=== PATIENT | male | born 1970 | race Two or more races ===

== ENCOUNTER 2025-03-08 10:58 | Inpatient (IN) | payer MEDICAID, OTHER ==
[~2025-03-08] VITALS: Ht 188 cm; Wt 171.0 kg
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
[2025-03-08 13:21] LABS: Hematocrit 42.8 % (41.0-53.0); Hemoglobin 14.9 g/dL (13.5-17.5); Mean Corpuscular Hemoglobin 29.5 pg (28.0-32.0); Mean Corpuscular Volume 85.0 fL (80.0-100.0); Nucleated Red Blood Cells % 0.1 %
[2025-03-08 13:25] LABS: Alanine Aminotransferase 28 U/L (7-40); Albumin 4.5 g/dL (3.2-4.8); Alkaline Phosphatase 114 U/L (46-116); Anion Gap 10 (5-15); BUN/Creatinine Ratio 18.4 (10.0-20.0); Blood Urea Nitrogen 14 mg/dL (9-23); Calcium 9.4 mg/dL (8.7-10.4); Carbon Dioxide 25 mmol/L (20-31); Chloride 102 mmol/L (98-107); Glucose 93 mg/dL (74-106); Potassium 4.0 mmol/L (3.5-5.1); Sodium 137 mmol/L (136-145); Total Protein 7.9 g/dL (5.7-8.2)
[2025-03-08 13:26] LABS: Bilirubin, Total 0.8 mg/dL (0.2-1.0); Creatine Kinase IFCC 67 U/L (46-171)
[2025-03-08 13:27] LABS: INR 1.0 (0.9-1.15); Prothrombin Time 10.6 sec (9.3-11.8)
[2025-03-08] MEDS: ACETAMINOPHEN 325 MG TAB PO ONE ×2 (13:33→23:12)
[2025-03-08] MEDS: SODIUM CHLORIDE 0.9% 1,000 ML IV ONE (13:34)
[2025-03-08] MEDS: CLINDAMYCIN 600MG IV 50 ML IV ONE ×2 (13:39→23:12)
--- NOTE | 2025-03-08 14:14 | DVH ---
Clinical History: swollen. pain Comparison: None Technique: Duplex Doppler evaluation of the deep venous system of the left lower extremity from the common femor al vein to the popliteal vein including color Doppler and spectral/pulsed waveform analysis was perfo rmed. Findings: The common femoral vein demonstrates appropriate compressibility and waveform variability. There is compressibility/patency of the great saphenous vein at the proximal thigh. The femoral vein demonstrates appropriate compressibility and waveform variability. The deep femoral vein demonstrates appropriate compressibility and waveform variability. The popliteal vein demonstrates appropriate compressibility and waveform variability. There is normal compressibility at the tibioperoneal trunk. Suboptimal visualization of the left post erior tibial vein due to body habitus. Impression: No left deep venous thrombosis. If clinical concern/symptoms persist or worsen, short-interval follow-up study is suggested.
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
[2025-03-08] MEDS ORDERED: MORPHINE SULFATE INJ 2 MG/ml SYRG IV PRN (21:45)
[2025-03-08] MEDS ORDERED: ONDANSETRON HCL 4 MG/2 ML VIAL IV PRN (21:45)
[2025-03-08] MEDS: ALBUTEROL SULF 2.5 MG/0.5ML(0.5%) NEB SOLN ONE (23:13)
[2025-03-08] MEDS: IPRATROPIUM BROM 0.5 MG/2.5ML INH SOL ONE (23:13)
--- NOTE | 2025-03-08 23:29 | DVH ---
CHEST RADIOGRAPH Indication: routine Technique: Single frontal view of the chest was obtained COMPARISON: None FINDINGS: Lines and Tubes: None Lungs: Clear Pleura: No effusion. No pneumothorax. Cardiomediastinal contours: Unremarkable Bones: Unremarkable IMPRESSION: 1. No acute disease.
[2025-03-08 23:52] VITALS: O2SAT 100
[2025-03-09] VITALS (7 sets, daily range): BP systolic 117–162; BP diastolic 67–91; PULSE 49–62; RESP 17–99; TEMP 97.4–98.7; O2SAT 18–99
[2025-03-09] MEDS ORDERED: LISI-283 PO (01:14)
[2025-03-09] MEDS ORDERED: VANCOMYCIN PER PHARMACY 0 MG IV SCH (05:00)
[2025-03-09] MEDS: VANCOMYCIN 1GM/250ML KIT 250 ML IV SCH (05:20)
[2025-03-09] MEDS ORDERED: CLINDAMYCIN 900MG IV 50 ML IV SCH (06:00)
[2025-03-09 06:07] LABS: Hematocrit 38.9 % (41.0-53.0); Hemoglobin 13.4 g/dL (13.5-17.5); Mean Corpuscular Hemoglobin 29.3 pg (28.0-32.0); Mean Corpuscular Volume 85.3 fL (80.0-100.0); Nucleated Red Blood Cells % 0.0 %
[2025-03-09 06:22] LABS: Alanine Aminotransferase 24 U/L (7-40); Alkaline Phosphatase 103 U/L (46-116); Anion Gap 10 (5-15); BUN/Creatinine Ratio 15.4 (10.0-20.0); Blood Urea Nitrogen 12 mg/dL (9-23); Calcium 8.8 mg/dL (8.7-10.4); Carbon Dioxide 25 mmol/L (20-31); Chloride 103 mmol/L (98-107); Potassium 4.3 mmol/L (3.5-5.1); Sodium 138 mmol/L (136-145); Total Protein 6.9 g/dL (5.7-8.2)
[2025-03-09 06:23] LABS: Albumin 3.9 g/dL (3.2-4.8)
[2025-03-09 06:24] LABS: Bilirubin, Total 0.7 mg/dL (0.2-1.0); Glucose 113 mg/dL (74-106)
[2025-03-09] MEDS: CEFEPIME 2GM/50ML NS 50 ML IV SCH (06:31)
[2025-03-09] MEDS: LISINOPRIL 20 MG TAB PO SCH (08:54)
[2025-03-09] MEDS: hydroCHLOROthiazide 25 MG TAB PO SCH (08:54)
[2025-03-09] MEDS ORDERED: PATIENTS OWN MEDICATION (Lisinopril & Hydrochlorothiazi (Lisinopril/Hydrochlorothi) 1 TAB) PO SCH (10:00)
--- NOTE | 2025-03-09 14:04 | DVH ---
CLINICAL INDICATION: pain TECHNIQUE: 4 radiographic views of the left tibia/fibula were obtained. Comparison: None FINDINGS/IMPRESSION: There is no evidence of acute fracture or dislocation. The visualized joint space is well maintained. Postsurgical changes are visualized in the distal tibi a and distal fibula. The alignment is anatomical. There is no radiopaque foreign body.
[2025-03-09] MEDS ORDERED: LIDOCAINE 1% INJ PF 5ML AMP ONE (14:28)
[2025-03-09] MEDS ORDERED: PROPOFOL 10 MG/ML 20 ML IV ONE (14:28)
[2025-03-09] MEDS ORDERED: ONDANSETRON HCL 4 MG/2 ML VIAL ONE (14:28)
[2025-03-09] MEDS ORDERED: SODIUM CHLORIDE LOCK 10 ML ONE (14:28)
[2025-03-09] MEDS ORDERED: MIDAZOLAM HCL 2MG/2ML 2ml VIAL (1mg/ml) ONE (14:28)
[2025-03-09] MEDS ORDERED: fentaNYL CITRATE 100 MCG/2 ML VL ONE (14:28)
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
[2025-03-09] MEDS: HYDROmorphone HCL 2 MG/ML VL/or syr IV PRN (15:27)
[2025-03-09] MEDS: HYDROmorphone HCL 2 MG/ML VL/or syr ONE (15:29)
[2025-03-09] MEDS ORDERED: HYDROmorphone HCL 2 MG/ML VL/or syr IV PRN (15:30)
[2025-03-09] MEDS ORDERED: HYDROcodone-ACET 5/325MG TAB PO PRN (15:30)
[2025-03-09] MEDS ORDERED: METOCLOPRAMIDE HCL 5MG/ml INJ 2ml VIAL IV PRN (15:30)
[2025-03-09] MEDS: KETOROLAC TROMETH 30 MG/ML 1ML VIAL IV ONE (15:30)
[2025-03-09] MEDS ORDERED: MORPHINE SULFATE 4 MG/ML SYR/VIAL IV PRN (15:30)
[2025-03-09] MEDS: ACCU-CHEK COMFORT CURVE STRIP VI ONE (15:30)
[2025-03-09] MEDS ORDERED: MORPHINE SULFATE INJ 2 MG/ml SYRG IV PRN (15:30)
[2025-03-09] MEDS ORDERED: HYDROcodone-ACET 10/325MG TAB PO PRN (15:30)
--- NOTE | 2025-03-09 15:36 | DVHOP2 ---
Operative Report - 2 Report Details Date: 03/09/25 Preop Diagnosis: Traumatic wound, infected Postop Diagnosis: Infected traumatic wound Surgeon: Bonifacio Padgett MD Anesthesiologist: Dr. Henry Anesthesia: General Consent: The patient was informed of the risks and benefits of the procedure. These include but are not limited to complications of anesthesia, postoperative infection, incomplete relief of symptoms, recurrence of symptoms, damage to blood vessels, nerves and tendons, deep venous thrombosis, pulmonary embolism and possible need for repeat surgery in the future. Estimated Blood Loss: 2 mL Findings: Wound with central eschar, once eschar was removed wound extended all the way to the tibialis muscle, wound had an infected hematoma, pus from superior margins Indications for Surgery: Infected left lower leg wound Name of Procedure Performed Left lower leg excisional debridement Procedure Details Procedure Details: Upon arrival to the operating room patient was transferred to the operating table and placed in the supine position with arms extended. General endotracheal anesthesia was induced. Time-out was observed. Left lower extremity was prepped and draped in a standard sterile surgical fashion with Betadine-Betadine. I then directed my attention to the left roy area, where the patient had a traumatic wound with a central eschar. Affected area is approximately 5-6 cm in diameter. I then sharply dissected off the eschar. Immediately noted a infected hematoma that extended down to the tibialis muscle. Hematoma was evacuated. Upon expression of the wound I noted pus coming from the edges of the wound superiorly. Loculations were broken in this area, and cultures taken. Pus was completely evacuated. The wound had some necrotic fat that was sharply debrided. The wound was then copiously irrigated with sterile saline. No further hematoma or pus was seen. Wound did not track anywhere. Final measurement of the wound 7 x 6 cm and down to tibialis muscle. Wound edges were sharply excised to healthy bleeding tissue, to aid in healing. Hemostasis was achieved with cautery. Wound was again irrigated. No further areas of concern noticed. All counts complete and correct. Wound was packed with 4 inch Kerlix gauze, moist. Wound was dressed with 4 x 4 gauze, covered with a ABD pad, and wrapped with Kerlix gauze and Raf wrap. Patient tolerated the procedure well and was transferred to PACU in stable condition. Condition Stable Disposition Still a Patient BONIFACIO CARR MD Mar 09, 2025 15:36
[2025-03-09] MEDS: ACETAMINOPHEN 325 MG TAB PO SCH (18:12)
[2025-03-09] MEDS: VANCOMYCIN 1.75GM/350ML 350 ML IV SCH (18:13)
[2025-03-10] VITALS (7 sets, daily range): BP systolic 122–135; BP diastolic 76–86; PULSE 50–61; RESP 16–18; TEMP 97.6–98.8; O2SAT 94–99
[2025-03-10 07:15] LABS: Hematocrit 32.2 % (41.0-53.0); Hemoglobin 11.0 g/dL (13.5-17.5); Mean Corpuscular Hemoglobin 29.5 pg (28.0-32.0); Mean Corpuscular Volume 86.2 fL (80.0-100.0); Nucleated Red Blood Cells % 0.1 %
--- NOTE | 2025-03-10 10:55 | DVHPN2 ---
Subjective Patient denies any symptoms at this time. Reviewed: Care Plan, H&P, Labs Changes from previous H/P or p: No Changes General: Per HPI Eyes: No Pain, No Vision change, No Conjunctivae inflammation, No Eyelid inflammation, No Other, No Redness ENT: No Ear pain, No Ear discharge, No Nose pain, No Nose discharge, No Nose congestion, No Mouth pain, No Mouth swelling, No Throat pain, No Throat swelling, No Other Cardiovascular: No Chest Pain, No Palpitations, No Orthopnea, No Paroxysmal Noc. Dyspnea, No Edema, No Lt Headedness, No Other Respiratory: No Cough, No Dry, No Shortness of breath, No SOB with excertion, No Wheezing, No Hemoptysis, No Pleuritic Pain, No Sputum, No Other Gastrointestinal: No Nausea, No Vomiting, No Abdominal Pain, No Diarrhea, No Constipation, No Melena, No Hematochezia, No Other Genitourinary: No Dysuria, No Frequency, No Incontinence, No Hematuria, No Retention, No Other Musculoskeletal: No other, No neck pain, No shoulder pain, No arm pain, No back pain, No hand pain; leg pain; No foot pain Skin: No Rash, No Lesions, No Jaundice, No Bruising, No Other Objective Vitals Vital Signs Date Time Temp Pulse Resp B/P (MAP) Pulse Ox O2 Delivery O2 Flow Rate FiO2 03/10/25 09:11 134/76 03/10/25 07:40 Room Air* 0 21 03/10/25 05:00 97.7 50 16 94 97.7 Intake/Output Intake and Output 03/10/25 07:00 Intake Total 1725 ml Balance 1725 ml Intake Oral 700 ml IV Total 1025 ml # Voids 1 General Appearance: Alert, Oriented X3, Cooperative Cardiovascular: Normal S1, Normal S2 Musculoskeletal: Normal sensory function Skin: Dry, Intact Psych/Mental Status: Mental status NL, Mood NL Medications Current Medications Medications Dose Ordered Sig/Ana Laura Route Start Time Stop Time Status Last Admin Dose Admin Ondansetron HCl 4 mg Q4HP PRN IV 03/08/25 21:45 Morphine Sulfate 2 mg Q4HPRN PRN IV 03/08/25 21:45 Vancomycin HCl 0 ml @ 0 mls/hr UD IV 03/09/25 05:00 Metronidazole 100 ml @ 100 mls/hr Q8HR IV 03/09/25 06:00 03/10/25 05:39 100 MLS/HR Cefepime HCl 50 ml @ 12.5 mls/hr Q8HR IV 03/09/25 06:00 03/10/25 05:39 12.5 MLS/HR Patient Own Medication 1 tab DAILY PO 03/09/25 10:00 UNV Lisinopril 20 mg DAILY PO 03/09/25 10:00 03/10/25 09:11 20 MG Hydrochlorothiazide 25 mg DAILY PO 03/09/25 10:00 03/10/25 09:11 25 MG Vancomycin HCl 350 ml @ 200 mls/hr Q12H IV 03/09/25 19:00 03/10/25 06:36 200 MLS/HR Acetaminophen 650 mg Q6HR PO 03/09/25 18:00 03/10/25 05:39 650 MG Acetaminophen/ Hydrocodone Bitart 1 tab Q6HPRN PRN PO 03/09/25 15:30 Acetaminophen/ Hydrocodone Bitart 1 tab Q6HP PRN PO 03/09/25 15:30 Laboratory Results Laboratory Tests 03/09/25 05:40 03/10/25 06:02 Microbiology Microbiology Date/Time Source Procedure Growth Status 03/09/25 14:48 Leg Left Gram Stain Pending Resulted 03/09/25 14:48 Leg Left Anaerobic Culture - Preliminary Resulted 03/09/25 14:48 Leg Left Aerobic Culture Pending Resulted 03/08/25 12:45 Blood Blood Culture - Preliminary NO GROWTH AFTER 24 HOURS OF INCUBATION. Resulted Labs and/or images reviewed: Labs reviewed by me, Image(s) reviewed by me Assessment/Plan Assessment/Plan Impression: -right anterior tibialis wound/abscess -hypertension -obesity Plan: -surgical consultation -x-ray lower extremity to rule out foreign body -antihypertensives -pain management -continue current antibiotic therapy -repeat labs in a.m. Total time spent with patient discussing and formulating plan of care: 35 minutes. This medical document was created using an electronic medical record system with [employer] system. Although this document has been carefully reviewed, there may still be some phonetic and typographical errors. These areas are purely typographical due to imperfections of the software programs, and do not reflect any compromise in the patient's medical care. Plan discussed with: Patient, Spouse, Other (RN) My Orders Orders - BELINDA MUNOZ NP Procedure Category Date Status Time L Tib Fib Xray XY 03/09/25 Resulted 13:17 * Senior Software Developer CONS 03/10/25 Verified Consult * Wound Consult CONS 03/10/25 Verified Date of Service: Mar 09, 2025 Billing Provider: BELINDA MUNOZ NP Common Visit Codes: [id number] INP/OBS CARE(HIGH) BELINDA MUNOZ NP Mar 10, 2025 10:55
--- NOTE | 2025-03-10 10:57 | DVHPN2 ---
Subjective Patient denies any symptoms at this time. Reviewed: Care Plan, H&P, Labs Changes from previous H/P or p: No Changes General: Per HPI Eyes: No Pain, No Vision change, No Conjunctivae inflammation, No Eyelid inflammation, No Other, No Redness ENT: No Ear pain, No Ear discharge, No Nose pain, No Nose discharge, No Nose congestion, No Mouth pain, No Mouth swelling, No Throat pain, No Throat swelling, No Other Cardiovascular: No Chest Pain, No Palpitations, No Orthopnea, No Paroxysmal Noc. Dyspnea, No Edema, No Lt Headedness, No Other Respiratory: No Cough, No Dry, No Shortness of breath, No SOB with excertion, No Wheezing, No Hemoptysis, No Pleuritic Pain, No Sputum, No Other Gastrointestinal: No Nausea, No Vomiting, No Abdominal Pain, No Diarrhea, No Constipation, No Melena, No Hematochezia, No Other Genitourinary: No Dysuria, No Frequency, No Incontinence, No Hematuria, No Retention, No Other Musculoskeletal: No other, No neck pain, No shoulder pain, No arm pain, No back pain, No hand pain; leg pain; No foot pain Skin: No Rash, No Lesions, No Jaundice, No Bruising, No Other Objective Vitals Vital Signs Date Time Temp Pulse Resp B/P (MAP) Pulse Ox O2 Delivery O2 Flow Rate FiO2 03/10/25 09:11 134/76 03/10/25 07:40 Room Air* 0 21 03/10/25 05:00 97.7 50 16 94 97.7 Intake/Output Intake and Output 03/10/25 07:00 Intake Total 1725 ml Balance 1725 ml Intake Oral 700 ml IV Total 1025 ml # Voids 1 General Appearance: Alert, Oriented X3, Cooperative HEENT: PERRLA Cardiovascular: Normal S1, Normal S2 Musculoskeletal: Normal sensory function Extremities: Other (Right leg wound. Appropriate granulation) Skin: Dry, Intact Psych/Mental Status: Mental status NL, Mood NL Medications Current Medications Medications Dose Ordered Sig/Ana Laura Route Start Time Stop Time Status Last Admin Dose Admin Ondansetron HCl 4 mg Q4HP PRN IV 03/08/25 21:45 Morphine Sulfate 2 mg Q4HPRN PRN IV 03/08/25 21:45 Vancomycin HCl 0 ml @ 0 mls/hr UD IV 03/09/25 05:00 Metronidazole 100 ml @ 100 mls/hr Q8HR IV 03/09/25 06:00 03/10/25 05:39 100 MLS/HR Cefepime HCl 50 ml @ 12.5 mls/hr Q8HR IV 03/09/25 06:00 03/10/25 05:39 12.5 MLS/HR Patient Own Medication 1 tab DAILY PO 03/09/25 10:00 UNV Lisinopril 20 mg DAILY PO 03/09/25 10:00 03/10/25 09:11 20 MG Hydrochlorothiazide 25 mg DAILY PO 03/09/25 10:00 03/10/25 09:11 25 MG Vancomycin HCl 350 ml @ 200 mls/hr Q12H IV 03/09/25 19:00 03/10/25 06:36 200 MLS/HR Acetaminophen 650 mg Q6HR PO 03/09/25 18:00 03/10/25 05:39 650 MG Acetaminophen/ Hydrocodone Bitart 1 tab Q6HPRN PRN PO 03/09/25 15:30 Acetaminophen/ Hydrocodone Bitart 1 tab Q6HP PRN PO 03/09/25 15:30 Laboratory Results Laboratory Tests 03/09/25 05:40 03/10/25 06:02 Microbiology Microbiology Date/Time Source Procedure Growth Status 03/09/25 14:48 Leg Left Gram Stain Pending Resulted 03/09/25 14:48 Leg Left Anaerobic Culture - Preliminary Resulted 03/09/25 14:48 Leg Left Aerobic Culture Pending Resulted 03/08/25 12:45 Blood Blood Culture - Preliminary NO GROWTH AFTER 24 HOURS OF INCUBATION. Resulted Labs and/or images reviewed: Labs reviewed by me, Image(s) reviewed by me Assessment/Plan Assessment/Plan Impression: -right anterior tibialis wound/abscess -hypertension -obesity Plan: -surgical consultation : Status post I and D -wound care consultation for wound VAC placement -antihypertensives -pain management -continue current antibiotic therapy -social service consultation for home health services for wound VAC, wound care nurse Total time spent with patient discussing and formulating plan of care: 35 minutes. This medical document was created using an electronic medical record system with [employer] system. Although this document has been carefully reviewed, there may still be some phonetic and typographical errors. These areas are purely typographical due to imperfections of the software programs, and do not reflect any compromise in the patient's medical care. Plan discussed with: Patient, Other (RN) My Orders Orders - BELINDA MUNOZ NP Procedure Category Date Status Time L Tib Fib Xray XY 03/09/25 Resulted 13:17 * Ticket Maker CONS 03/10/25 Verified Consult * Wound Consult CONS 03/10/25 Verified Date of Service: Mar 10, 2025 Billing Provider: BELINDA MUNOZ NP Common Visit Codes: [id number] INP/OBS CARE(HIGH) BELINDA MUNOZ NP Mar 10, 2025 10:56
--- NOTE | 2025-03-10 15:57 | DVHPN2 ---
Progress Note - Surgical Date Seen: Mar 10, 2025 Post op day Post op day: 1 Subjective Patient reports: Feels better (Patient feels better today, no pain complaints, he is afebrile with vital signs stable, no leukocytosis, tolerating diet) Review of Systems: Deferred (.) Objective Vital signs Vital Sign Date Time Temp Pulse Resp B/P (MAP) Pulse Ox O2 Delivery O2 Flow Rate FiO2 03/10/25 09:11 134/76 03/10/25 07:40 Room Air* 0 21 03/10/25 05:00 97.7 50 16 94 97.7 Total Intake and Output 03/09/25 03/09/25 03/10/25 15:00 23:00 07:00 Intake Total 425 ml 1050 ml 250 ml Balance 425 ml 1050 ml 250 ml Medications Current Medications Medications Dose Ordered Sig/Ana Laura Route Start Time Stop Time Status Last Admin Dose Admin Ondansetron HCl 4 mg Q4HP PRN IV 03/08/25 21:45 Morphine Sulfate 2 mg Q4HPRN PRN IV 03/08/25 21:45 Vancomycin HCl 0 ml @ 0 mls/hr UD IV 03/09/25 05:00 Cefepime HCl 50 ml @ 12.5 mls/hr Q8HR IV 03/09/25 06:00 03/10/25 13:44 12.5 MLS/HR Patient Own Medication 1 tab DAILY PO 03/09/25 10:00 UNV Lisinopril 20 mg DAILY PO 03/09/25 10:00 03/10/25 09:11 20 MG Hydrochlorothiazide 25 mg DAILY PO 03/09/25 10:00 03/10/25 09:11 25 MG Vancomycin HCl 350 ml @ 200 mls/hr Q12H IV 03/09/25 19:00 03/10/25 06:36 200 MLS/HR Acetaminophen 650 mg Q6HR PO 03/09/25 18:00 03/10/25 12:18 650 MG Acetaminophen/ Hydrocodone Bitart 1 tab Q6HPRN PRN PO 03/09/25 15:30 Acetaminophen/ Hydrocodone Bitart 1 tab Q6HP PRN PO 03/09/25 15:30 Laboratory Laboratory Tests 03/10/25 06:02 03/09/25 05:40 Test 03/09/25 05:40 Range/Units Serum Glucose 113 H 74-106 mg/dL Microbiology Date/Time Source Procedure Growth Status 03/09/25 14:48 Leg Left Gram Stain - Final Resulted 03/09/25 14:48 Leg Left Anaerobic Culture - Preliminary Resulted 03/09/25 14:48 Leg Left Aerobic Culture - Preliminary Resulted 03/08/25 12:45 Blood Blood Culture - Preliminary NO GROWTH AFTER 48 HOURS OF INCUBATION. Resulted Examination: GENERAL:Normal, SKIN:Abnormal (Left anterior roy wound approximately 7 cm x 5 cm and down to tibialis muscle fascia, no pus, no drainage, no bleeding, no necrosis, some surrounding erythema.) Labs and/or images reviewed: Labs reviewed by me (No leukocytosis) Problem List/Assessment/Plan Problems: (1) Traumatic hematoma of lower leg with infection Assessment and Plan Mr. Leija is a 54-year-old male who presented due to traumatic wound in the left lower leg. He is currently postop day 1 from wound debridement, due to infected hematoma. Wound is looking good today, no pus/no drainage/no bleeding, some surrounding erythema. Wound does not need any more debridement, continue with antibiotics for cellulitic changes surrounding the wound. Patient will need to continue b.i.d. packing. 1. Follow-up culture results 2. Continue wound packing as instructed 3. Patient might benefit from home health consultation for home wound VAC placement 4. Continue with antibiotics for cellulitis 5. We will sign off please call with any questions or concerns. 6. Patient to follow-up at surgery Clinic with Dr. Mosley, 1 week post discharge. Plan discussed with Plan discussed with: Patient Visit Coding Surgery Date of Service if different f: Mar 10, 2025 Billing Provider: KAMILLA VALERIO MD Surgery Visit Codes: [id number] INP/OBS CARE(HIGH) ADRIENNE CARR MD Mar 10, 2025 15:57
[2025-03-11] VITALS (9 sets, daily range): BP systolic 128–176; BP diastolic 69–100; PULSE 49–61; RESP 16–18; TEMP 97.5–98.2; O2SAT 94–98
[2025-03-11 06:34] LABS: Hematocrit 39.3 % (41.0-53.0); Hemoglobin 13.8 g/dL (13.5-17.5); Mean Corpuscular Hemoglobin 29.9 pg (28.0-32.0); Mean Corpuscular Volume 85.0 fL (80.0-100.0); Nucleated Red Blood Cells % 0.1 %
[2025-03-11] MEDS ORDERED: BACDST PO (11:06)
[2025-03-11] MEDS ORDERED: TRAM-626 PO (11:11)
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
[2025-03-12 01:00] VITALS: BP 128/74; PULSE 57; RESP 17; TEMP 98.2; O2SAT 95
[2025-03-12 05:00] VITALS: BP 124/74; PULSE 53; RESP 16; TEMP 97.5; O2SAT 95
[2025-03-12] MEDS: VANCOMYCIN 1.75GM/350ML 350 ML IV SCH (08:10)
[2025-03-12 12:50] VITALS: BP 143/88; PULSE 65; RESP 19; TEMP 97.4; O2SAT 98
--- NOTE | 2025-03-12 13:56 | DVHPN2 ---
Subjective Patient denies any symptoms at this time. Reviewed: Care Plan, H&P, Labs Changes from previous H/P or p: No Changes General: Per HPI Eyes: No Pain, No Vision change, No Conjunctivae inflammation, No Eyelid inflammation, No Other, No Redness ENT: No Ear pain, No Ear discharge, No Nose pain, No Nose discharge, No Nose congestion, No Mouth pain, No Mouth swelling, No Throat pain, No Throat swelling, No Other Cardiovascular: No Chest Pain, No Palpitations, No Orthopnea, No Paroxysmal Noc. Dyspnea, No Edema, No Lt Headedness, No Other Respiratory: No Cough, No Dry, No Shortness of breath, No SOB with excertion, No Wheezing, No Hemoptysis, No Pleuritic Pain, No Sputum, No Other Gastrointestinal: No Nausea, No Vomiting, No Abdominal Pain, No Diarrhea, No Constipation, No Melena, No Hematochezia, No Other Genitourinary: No Dysuria, No Frequency, No Incontinence, No Hematuria, No Retention, No Other Musculoskeletal: No other, No neck pain, No shoulder pain, No arm pain, No back pain, No hand pain; leg pain; No foot pain Skin: No Rash, No Lesions, No Jaundice, No Bruising, No Other Objective Vitals Vital Signs Date Time Temp Pulse Resp B/P (MAP) Pulse Ox O2 Delivery O2 Flow Rate FiO2 03/12/25 12:50 97.4 65 19 143/88 (106) 98 97.4 03/12/25 08:00 Room Air* 0 21 Intake/Output Intake and Output 03/12/25 07:00 Intake Total 1090 ml Output Total 3 ml Balance 1087 ml Intake Oral 1050 ml IV Total 40 ml Output Stool Total 3 ml # Voids 2 # Bowel Movements 1 General Appearance: Alert, Oriented X3, Cooperative HEENT: PERRLA Cardiovascular: Normal S1, Normal S2 Musculoskeletal: Normal sensory function Extremities: Other (Right leg wound. Appropriate granulation) Skin: Dry, Intact Psych/Mental Status: Mental status NL, Mood NL Medications Current Medications Medications Dose Ordered Sig/Ana Laura Route Start Time Stop Time Status Last Admin Dose Admin Ondansetron HCl 4 mg Q4HP PRN IV 03/08/25 21:45 Morphine Sulfate 2 mg Q4HPRN PRN IV 03/08/25 21:45 Vancomycin HCl 0 ml @ 0 mls/hr UD IV 03/09/25 05:00 Cefepime HCl 50 ml @ 12.5 mls/hr Q8HR IV 03/09/25 06:00 03/12/25 05:26 12.5 MLS/HR Patient Own Medication 1 tab DAILY PO 03/09/25 10:00 UNV Lisinopril 20 mg DAILY PO 03/09/25 10:00 03/12/25 10:17 20 MG Hydrochlorothiazide 25 mg DAILY PO 03/09/25 10:00 03/12/25 10:17 25 MG Acetaminophen 650 mg Q6HR PO 03/09/25 18:00 03/12/25 12:05 650 MG Acetaminophen/ Hydrocodone Bitart 1 tab Q6HPRN PRN PO 03/09/25 15:30 Acetaminophen/ Hydrocodone Bitart 1 tab Q6HP PRN PO 03/09/25 15:30 Vancomycin HCl 350 ml @ 200 mls/hr Q12H IV 03/12/25 08:00 03/12/25 08:10 200 MLS/HR Laboratory Results Laboratory Tests 03/09/25 05:40 03/11/25 05:34 03/12/25 05:29 Microbiology Microbiology Date/Time Source Procedure Growth Status 03/09/25 14:48 Leg Left Gram Stain - Final Resulted 03/09/25 14:48 Leg Left Anaerobic Culture - Preliminary Resulted 03/09/25 14:48 Aerobic Culture - Final Enterobacter cloacae Pseudomonas stutzeri Resulted 03/08/25 12:45 Blood Blood Culture - Preliminary NO GROWTH AFTER 72 HOURS OF INCUBATION. Resulted Labs and/or images reviewed: Labs reviewed by me, Image(s) reviewed by me Assessment/Plan Assessment/Plan Impression: -right anterior tibialis wound/abscess -hypertension -obesity Plan: -surgical consultation : Status post I and D -wound care consultation for wound VAC placement -antihypertensives -pain management -continue current antibiotic therapy -social service consultation: Still pending authorization for wound VAC, thus patient is still in the hospital. Patient was discharged two days ago. Total time spent with patient discussing and formulating plan of care: 35 minutes. This medical document was created using an electronic medical record system with [employer] dictation system. Although this document has been carefully reviewed, there may still be some phonetic and typographical errors. These areas are purely typographical due to imperfections of the software programs, and do not reflect any compromise in the patient's medical care. Plan discussed with: Patient, Other (RN) Date of Service: Mar 12, 2025 Billing Provider: BELINDA MUNOZ NP Common Visit Codes: [id number] INP/OBS CARE(HIGH) BELINDA MUNOZ NP Mar 12, 2025 13:56
[2025-03-12 16:19] VITALS: BP 146/86; PULSE 69; RESP 17; TEMP 97.9; O2SAT 96
[2025-03-12 21:00] VITALS: BP 140/90; PULSE 75; RESP 19; TEMP 98.4; O2SAT 94
[2025-03-13 01:00] VITALS: BP 120/68; PULSE 50; RESP 18; TEMP 98.1; O2SAT 96
[2025-03-13 05:00] VITALS: BP_SYST 102; BP_SYST 118; BP_DIAS 69; PULSE 57; PULSE 85; RESP 19; TEMP 98.1; O2SAT 95; O2SAT 97
[2025-03-13 09:00] VITALS: BP 143/89; PULSE 53; RESP 20; TEMP 97.4; O2SAT 94
[2025-03-13 13:00] VITALS: BP 139/80; PULSE 51; RESP 20; TEMP 97.4; O2SAT 95
== END 2025-03-13 16:41 | disposition home or self-care (01) | DRG 383 ==
LOC: ER 10:58 → OVERFLOW 21:32 → WEST WING 21:35
PROVIDERS: ADMIT Nurse Practitioner Acute Care; ATTEND Nurse Practitioner Acute Care
PROC: 0JBN0ZZ Excision of Right Lower Leg Subcutaneous Tissue and Fascia, Open Approach (ICD-10-PCS; principal; 2025-03-09 14:31)
DX: L03.116 Cellulitis of left lower limb (principal); L97.929 Non-pressure chronic ulcer of unspecified part of left lower leg with unspecified severity; L02.415 Cutaneous abscess of right lower limb; I10 Essential (primary) hypertension; E66.9 Obesity, unspecified; S80.10XA Contusion of unspecified lower leg, initial encounter; L02.416 Cutaneous abscess of left lower limb; S81.802A Unspecified open wound, left lower leg, initial encounter; Z79.899 Other long term (current) drug therapy; Z68.42 Body mass index [BMI] 45.0-49.9, adult; X58.XXXA Exposure to other specified factors, initial encounter; Y93.89 Activity, other specified; Y92.89 Other specified places as the place of occurrence of the external cause; Y99.8 Other external cause status
CPT/HCPCS: 36415; 71045; 73590; 80053; 80202; 82550; 82565; 82962; 83605; 85025; 85610; 87040; 87070; 87075; 87076; 87077; 87186; 87205; 93971; 96365; 99291; G0378; J0692; J2250; J2405; J2704; J3490